=== PATIENT | female | born 1995 | race Caucasian/White ===

== ENCOUNTER 2017-09-08 20:00 | Emergency (ER) | payer OTHER, SELFPAY ==
[2017-09-08 20:04] VITALS: BP 135/83; PULSE 141; PULSE 144; RESP 18; RESP 20; TEMP 37.7; O2SAT 98; BMI 23.9
--- NOTE | 2017-09-08 20:09 | EKG12_ITS ---
Test Reason : PALPITATIONS Blood Pressure : / mmHG Vent. Rate : 108 BPM Atrial Rate : 108 BPM P-R Int : 144 ms QRS Dur : 082 ms QT Int : 346 ms P-R-T Axes : 072 078 053 degrees QTc Int : 463 ms Sinus tachycardia Otherwise normal ECG Confirmed by SHARI NG, LASHELL ([id number]), editor publications ANN LANG ([id number]) on 09/10/2017 1:10:31 PM Referred By: CHERY Confirmed By:LASHELL MCCARTHY MD
--- NOTE | 2017-09-08 20:19 | RAD_ITS ---
STUDY: X-RAY CHEST REASON FOR EXAM: Female, 22 years old. Palpitations. TECHNIQUE: Single AP portable view of the chest. COMPARISON: None. FINDINGS: The lungs are clear and expanded. There is no demonstrated pleural abnormality. Normal size heart. Normal mediastinum and dameon. Normal visualized pulmonary arteries. Normal visualized aortic arch and descending thoracic aorta. Normal visualized thoracic spine. Normal visualized ribs, clavicles, and shoulders. There is no demonstrated abnormality of the visualized soft tissue structures of the upper abdomen. RAD/Chest 1 View (Portable) IMPRESSION: Normal x-ray examination of the chest. Electronically Signed: Ever Alex DO at 20:45 EDT Tel [phone], Service support ,
[2017-09-08 20:47] LABS: Absolute Lymphocyte Count 1.59 X10^3/ul (0.83-4.51); Absolute Neutrophil Count 5.7 X10^3/uL (2.0-7.7); Basophil# 0.02 X10^3/uL; Basophil% 0.3 % (0-1); Eosinophil# 0.08 X10^3/uL; Hemoglobin 15.2 g/dl (12.0-15.0); Lymphocyte # 1.59 X10^3/ul (4.0); Mean Corp Hgb Conc 35.3 g/gl (32-36); Mean Corpuscular Hgb 28.6 pg (27.0-32.0); Mean Corpuscular Volume 80.8 fL (81-99); Mean Platelet Vol. 10.7 fl (6.2-12.0); Monocyte# 0.53 X10^3/uL; Monocyte% 6.7 % (0-10); Neutrophil # 5.72 X10^3/uL (2.7-7.7); Neutrophil % 71.7 % (47-70); POSITIVE COUNT NO; POSITIVE DIFFERENTIAL NO; POSITIVE MORPHOLOGY NO; Platelet Count 284 K/mm3 (150-450); RBC Distribution Width CV 12.9 % (11.6-14.6); Red Blood Count 5.32 M/mm3 (4.2-5.4)
--- NOTE | 2017-09-08 21:07 | ED.DCSUM_ITS ---
- ER Visit Summary Date of Service: 09/08/17 Chief Complaint: Palpitations History of Present Illness: The patient is a 22 F presenting with palpitations ? 2 weeks. This has been intermittent and progressively worsening. Patient has been anxious and under a lot of stress. She has a new boyfriend who she met online. She was afraid to tell her mother. She has had no increase in caffeine. She has anxiety and depression. She denies suicidal ideation. Denies alcohol or drug use. No PE/DVT risk factors. Denies other complaints. Physical Examination: Vitals are stable. Heart rate 144, temperature 99.9 Alert no acute distress. HEENT exam is unremarkable. Neck is supple. No meningismus Lungs are clear and equal bilaterally. Heart is regular and tachycardic Abdomen is soft nontender nondistended. Extremities are unremarkable. Skin is warm and dry. No focal neurologic deficit. Remainder of exam is unremarkable. Emergency Department Course and Treatment: EKG sinus tachycardia rate of 108. Orthostatics are positive. Patient was given IV fluids. Chest x-ray shows no acute process. CBC, chemistries unremarkable other than potassium 3.1. Troponin is negative. HCG negative. TSH 3.46. Patient is feeling improved following fluids. Her repeat heart rate is 91. She is given potassium oral replacement. She is requesting medication for anxiety. She is given a prescription for Vistaril. She will follow-up with her primary care physician and the counseling center. She is advised to return to ED for worsening complaints. Disposition: Discharge home Impression: Palpitations, anxiety This note was generated with [employer] dictation software. It may contain incorrect words, spelling, and punctuation that were not noted in review of the chart prior to signing ED Disposition - Plan for ED Patient: Chief Complaint: Palpitations Instructions: ED Palpitations Prescriptions: hydrOXYzine pamoate capsule [Vistaril] 25 mg PO TID PRN PRN #20 capsule PRN Reason: Anxiety Referrals: [facility] [GROUP OF PHYSICIANS] - Bonnie Lindquist MD [STAFF PHYSICIAN] -
[2017-09-08 21:11] LABS: Anion Gap 13 (5-15); BUN 10 mg/dL (7-18); BUN/Creat Ratio 11.4 RATIO (10-20); Calcium,Total 9.9 mg/dL (8.5-10.1); Chloride 107 mmol/L (98-107); Creatinine, Serum 0.88 mg/dL (0.55-1.02); EST Glomerular Filtration Rate 87 mL/min (>60); Est Glom Filt Rate - Afr Amer 106 mL/min (>60); Estimated Creatinine Clearance 86.61 ml/min; Glucose 101 mg/dL (74-106); Potassium 3.1 mmol/L (3.5-5.1); Sodium Level 141 mmol/L (136-145)
[2017-09-08] MEDS: 0.9% Normal Saline 1,000 ML 999 ML IV ×2 (21:15→22:05)
[2017-09-08 21:16] VITALS: BP 104/81; BP 113/85; BP 123/83; PULSE 102; PULSE 125; PULSE 132
[2017-09-08 21:30] LABS: Thyroid Stim Hormone (TSH) 3.46 uIU/mL (0.358-3.74)
[2017-09-08 21:40] LABS: Pregnancy, Serum, hCG Quali. NEGATIVE Negative (0-9 Nonpreg)
[2017-09-08 22:04] VITALS: BP 124/72; PULSE 91; RESP 18; O2SAT 96
--- NOTE | 2017-09-08 23:46 | ED.DEP ---
ED Disposition - Plan for ED Patient: Chief Complaint: Palpitations Instructions: ED Palpitations Prescriptions: hydrOXYzine pamoate capsule [Vistaril] 25 mg PO TID PRN PRN #20 capsule PRN Reason: Anxiety Referrals: Bonnie Lindquist MD [STAFF PHYSICIAN] - [facility] [GROUP OF PHYSICIANS] -
[2017-09-09 00:02] VITALS: BP 116/84; PULSE 99; RESP 18
== END 2017-09-09 00:03 | disposition home or self-care (01) ==
PROVIDERS: Emergency Provider Emergency Medicine
DX: R00.2 Palpitations (principal); F41.9 Anxiety disorder, unspecified
CPT/HCPCS: 71045; 80048; 84443; 84484; 84703; 85025; 93005; 96360; 99285; J7030; A4216

== ENCOUNTER → 2020-01-09 09:52 | Outpatient (CLI) | payer OTHER, SELFPAY ==
[2020-01-09 12:31] LABS: Absolute Lymphocyte Count 1.48 X10^3/uL (0.83-4.51); Absolute Neutrophil Count 3.8 X10^3/uL (2.0-7.7); Basophil# 0.03 X10^3/uL; Basophil% 0.5 % (0-1); Eosinophil# 0.12 X10^3/uL; Hematocrit 44.5 % (37-47); Hemoglobin 14.4 g/dL (12.0-15.0); Lymphocyte # 1.48 X10^3/ul (4.0); Mean Corp Hgb Conc 32.4 g/dL (32-36); Mean Corpuscular Hgb 27.5 pg (27.0-32.0); Mean Corpuscular Volume 84.9 fL (81-99); Monocyte# 0.48 X10^3/uL; Monocyte% 8.1 % (0-10); NRBC Flagged by Analyzer 0 % (0-5); Neutrophil # 3.78 X10^3/uL (2.7-7.7); Neutrophil % 64.1 % (47-70); Platelet Count 262 K/mm3 (150-450); RBC Distribution Width CV 12.7 % (11.6-14.6); RBC Distribution Width SD 39.5 fl (35.1-43.9); Red Blood Count 5.24 M/mm3 (4.2-5.4); White Blood Count 5.9 K/mm3 (4.4-11.0)
[2020-01-09 12:43] LABS: ALB/GLOB Ratio 1.1 RATIO (0.9-2.4); AST(SGOT) 17 U/L (15-37); Alanine Aminotransfer ALT/SGPT 40 U/L (13-56); Alkaline Phosphatase 60 U/L (45-117); Anion Gap 7 (5-15); BUN 13 mg/dL (7-18); BUN/Creat Ratio 16.3 RATIO (10-20); Calcium,Total 9.4 mg/dL (8.5-10.1); Chloride 106 mmol/L (98-107); Cholesterol 167 mg/dL (200); EST Glomerular Filtration Rate 95 mL/min (>60); Est Glom Filt Rate - Afr Amer 115 mL/min (>60); Globulin 3.7 g/dL (2.2-4.2); Glucose 81 mg/dL (74-106); High Density Lipoprotein 38 mg/dL; Potassium 3.6 mmol/L (3.5-5.1); Protein, Total 7.7 g/dL (6.4-8.2); Sodium Level 139 mmol/L (136-145); Thyroid Stim Hormone (TSH) 3.19 uIU/mL (0.358-3.74); Triglycerides 112 mg/dL; Very Low Density Lipoprotein 22 mg/dL (5-40)
[2020-01-09 12:50] LABS: Hemoglobin A1c 4.9 % (3.8-5.6)
== END ==
PROVIDERS: PCP Family Medicine
DX: F84.0 Autistic disorder (principal); F32.9 Major depressive disorder, single episode, unspecified; F41.0 Panic disorder [episodic paroxysmal anxiety]
CPT/HCPCS: 36415; 80053; 80061; 83036; 84443; 85025

== ENCOUNTER 2020-10-08 13:34 | Emergency (ER) | payer OTHER, SELFPAY ==
[2020-10-08] VITALS (9 sets, daily range): BP systolic 106–120; BP diastolic 65–83; PULSE 69–95; RESP 14–18; TEMP 36.9–37.1; O2SAT 96–100; BMI 26.2
--- NOTE | 2020-10-08 14:35 | EKG12_ITS ---
Test Reason : Blood Pressure : / mmHG Vent. Rate : 089 BPM Atrial Rate : 089 BPM P-R Int : 142 ms QRS Dur : 080 ms QT Int : 378 ms P-R-T Axes : 061 076 047 degrees QTc Int : 459 ms Normal sinus rhythm Normal ECG Confirmed by SHARI NG, LASHELL ([id number]), editor school photograph REGLA GRANADOS ([id number]) on 10/09/2020 1:54:16 PM Referred By: BIJAN Confirmed By:LASHELL MCCARTHY MD
[2020-10-08 14:37] LABS: Amphetamine Urine VISTA NEGATIVE (<1000 ng/mL); Barbiturate Urine VISTA NEGATIVE (< 200 ng/mL); Benzodiazepine Urine VISTA NEGATIVE (< 200 ng/mL); Cocaine Urine VISTA NEGATIVE (< 300 ng/mL); Ecstacy Urine VISTA NEGATIVE (< 500 ng/mL); Methadone Urine VISTA NEGATIVE (< 300 ng/mL); PCP Urine VISTA NEGATIVE (< 25 ng/mL); THC Urine VISTA NEGATIVE (< 50 ng/mL); Vista UDS pH Range 6
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
[2020-10-08 14:58] LABS: Absolute Lymphocyte Count 0.97 X10^3/uL (0.83-4.51); Absolute Neutrophil Count 3.7 X10^3/uL (2.0-7.7); Basophil# 0.02 X10^3/uL; Basophil% 0.4 % (0-1); Eosinophil# 0.08 X10^3/uL; Eosinophils% 1.5 % (0-5); Hematocrit 44.8 % (37-47); Hemoglobin 15.1 g/dL (12.0-15.0); Lymphocyte # 0.97 X10^3/ul (0.83-4.51); Lymphocyte % 18.8 % (19-41); Mean Corp Hgb Conc 33.7 g/dL (32-36); Mean Corpuscular Hgb 27.8 pg (27.0-32.0); Mean Corpuscular Volume 82.4 fL (81-99); Monocyte# 0.36 X10^3/uL; NRBC Flagged by Analyzer 0 % (0-5); Neutrophil # 3.72 X10^3/uL (2.7-7.7); Neutrophil % 71.9 % (47-70); Platelet Count 248 K/mm3 (150-450); RBC Distribution Width CV 12.8 % (11.6-14.6); RBC Distribution Width SD 38.2 fl (35.1-43.9); Red Blood Count 5.44 M/mm3 (4.2-5.4); White Blood Count 5.2 K/mm3 (4.4-11.0)
[2020-10-08 15:11] LABS: Anion Gap 4 (5-15); BUN 9 mg/dL (7-18); BUN/Creat Ratio 13.2 RATIO (10-20); Calcium,Total 9.1 mg/dL (8.5-10.1); Chloride 107 mmol/L (98-107); Creatinine, Serum 0.68 mg/dL (0.55-1.02); EST Glomerular Filtration Rate 113 mL/min (>60); Est Glom Filt Rate - Afr Amer 137 mL/min (>60); Estimated Creatinine Clearance 119.64 ml/min; Glucose 87 mg/dL (74-106); Sodium Level 138 mmol/L (136-145)
[2020-10-08 15:18] LABS: Alcohol, Blood (Medical)-Serum < 3.0 mg/dL
--- NOTE | 2020-10-08 16:14 | EDS_ITS ---
HPI HPI - Psych History of Present Illness Chief Complaint: Suicidal Informant: patient and parent Onset/Context/Timing Onset: Today Context: Sudden Onset Conflict: Family Timing: Continuous Worsened by: Situational factors Associated Symptoms Associated Symptoms - Psych: Positive for Depressed, Decreased Interest, Hopelessness, Suicidal Thoughts and Auditory Hallucinations Specific plan (suicidal thought): Cutting wrists, shooting self with gun, drinking alcohol and drowning self Narrative Narrative: Patient presents with suicidal ideations that became worse today. Mother states that she told the patient that she needed to clean up her room so that her cat would not mess it up. Mother states that patient became upset with this and started having suicidal ideations. Patient states that she feels like she feels hopeless. Patient admits to some auditory hallucinations. Patient states the voices are telling her that she is doing well and doing all the right things. Patient states she has thought of getting in the bathtub and cutting her wrists, getting into her father's gun cabinet and shooting herself, and drinking alcohol and trying to drown herself. PFSH PFS Medical History Anxiety Depression Home Medications citalopram [Celexa] 30 mg PO DAILY 10/08/20 [History Last Taken Unknown] Allergy/AdvReac Type Severity Reaction Status Date / Time latex AdvReac Rash Verified 10/08/20 13:38 no surgical history Social History Smoking Status: Never smoker ROS ROS ED Constitutional Constitutional ED: Denies chills or fever(s) Eyes Eyes: Denies blurry vision or change in vision ENT ENT ED: Denies rhinorrhea or sore throat Cardiovascular Cardiovascular: Reports chest pain; Denies palpitations Respiratory/Chest Respiratory/Chest: Denies cough or dyspnea Gastrointestinal Gastrointestinal: Denies nausea or vomiting Genitourinary Genitourinary ED: Denies dysuria or hematuria Musculoskeletal Musculoskeletal: Reports back pain; Denies neck pain Integumentary Denies abscess or rash Neurologic Neurologic: Denies headache(s) or weakness Psychiatric Psychiatric: Reports anxiety, depression and suicidal thoughts Allergic/Immunologic Allergic/Immunologic ED: Denies mouth swelling or urticaria EXAM Physical Exam Const Vital Signs: 10/08/20 13:35 10/08/20 14:43 10/08/20 15:15 Temperature 98.5 F Temperature Source Temporal Pulse Rate 95 Respiratory Rate 18 16 14 Blood Pressure 120/83 H Blood Pressure Mean 95 Pulse Ox 100 Oxygen Delivery Method Room Air Room Air 10/08/20 16:13 Temperature Temperature Source Pulse Rate Respiratory Rate 16 Blood Pressure Blood Pressure Mean Pulse Ox Oxygen Delivery Method Room Air Positive well nourished and well developed General Appearance ED: well developed HEENT normocephalic and atraumatic Neck supple and no JVD Resp normal respiratory effort and clear to auscultation bilaterally Cardio no murmurs Rate: regular rate Rhythm: regular rhythm GI non-tender and non-distended Auscultation: normoactive bowel sounds Palpation: soft Extremity normal to inspection General Extremety ED: Negative for edema or tenderness General Extremity: Negative for edema Neuro oriented x3, CN's II-XII intact bilaterally and no sensory deficits noted Sensorium / Orientation: alert Motor Exam: strength 5/5 throughout Psych mental status grossly normal Activity / Motor Behavior: avoids eye contact Speech: minimal and soft Mood & Affect: depressed and flat affect Thought Content: suicidality and hallucination(s) Positive for auditory Attention / Concentration: attention grossly intact Skin Rashes: no rashes MDM MDM MDM Narrative Medical decision making narrative: EKG was obtained. On my interpretation, it showed a normal sinus rhythm with a rate of 89. NE interval, QRS interval, and QTc intervals were all normal. [place] was normal. There are no acute ST or T wave changes. CBC was essentially within normal limits. Basic metabolic prof ile was normal. Urine tox screen was negative. Serum alcohol level was negative. COVID-19 rapid antigen was obtained and was negative. Serum hCG was ordered and is negative. Patient is medically cleared for psychiatric evaluation. Ladies' Locker Room Attendant is in to evaluate the patient. wax ball knock out worker and I both feel that the patient would benefit from inpatient psychiatric care. Case management is attempting to try to get the patient placed in a psychiatric facility. Lab Data Attestation: I reviewed the patient's lab results. Labs: Laboratory Results - last 24 hr 10/08/20 10/08/20 10/08/20 14:09 14:43 14:43 WBC 5.2 RBC 5.44 H Hgb 15.1 H Hct 44.8 MCV 82.4 MCH 27.8 MCHC 33.7 RDW Std Deviation 38.2 RDW Coeff of Scott 12.8 Plt Count 248 MPV 10.0 Immature Gran % (Auto) 0.400 Neut % (Auto) 71.9 H Lymph % (Auto) 18.8 L Charlotte % (Auto) 7.0 Eos % (Auto) 1.5 Baso % (Auto) 0.4 Absolute Neuts (auto) 3.7 Absolute Lymphs (auto) 0.97 Nucleated RBC % 0 Sodium 138 Potassium 4.0 Chloride 107 Carbon Dioxide 27.0 Anion Gap 4 L BUN 9 Creatinine 0.68 Estim Creat Clear Calc 119.64 Est GFR (MDRD) Af Amer 137 Est GFR (MDRD) Non-Af 113 BUN/Creatinine Ratio 13.2 Glucose 87 Calcium 9.1 Serum , Qual Urine Opiates Screen NEGATIVE Urine Methadone Screen NEGATIVE Ur Barbiturates Screen NEGATIVE Ur Phencyclidine Scrn NEGATIVE Ur Amphetamines Screen NEGATIVE U Methamphetamin-MDMA NEGATIVE U Benzodiazepines Scrn NEGATIVE Urine Cocaine Screen NEGATIVE U Cannabinoids Screen NEGATIVE Ur Drug Screen Comment Ethyl Alcohol 10/08/20 10/08/20 14:43 14:43 WBC RBC Hgb Hct MCV MCH MCHC RDW Std Deviation RDW Coeff of Scott Plt Count MPV Immature Gran % (Auto) Neut % (Auto) Lymph % (Auto) Charlotte % (Auto) Eos % (Auto) Baso % (Auto) Absolute Neuts (auto) Absolute Lymphs (auto) Nucleated RBC % Sodium Potassium Chloride Carbon Dioxide Anion Gap BUN Creatinine Estim Creat Clear Calc Est GFR (MDRD) Af Amer Est GFR (MDRD) Non-Af BUN/Creatinine Ratio Glucose Calcium Serum , Qual NEGATIVE Urine Opiates Screen Urine Methadone Screen Ur Barbiturates Screen Ur Phencyclidine Scrn Ur Amphetamines Screen U Methamphetamin-MDMA U Benzodiazepines Scrn Urine Cocaine Screen U Cannabinoids Screen Ur Drug Screen Comment Ethyl Alcohol < 3.0 EKG Initial EKG: Attestation: I personally reviewed and interpreted this EKG as follows: Interpretation: Sinus Rhythm (89) and No Acute Injury Pattern Discharge Plan Triage Chief Complaint: Suicidal ED Provider: Christian Murrieta Dx/Rx/DC Orders Clinical Impression: Depression with suicidal ideation Prescriptions: No Action citalopram [Celexa] 20 mg tablet 30 mg PO DAILY RF: 0 Primary Care Provider: Keila Givens Referrals: Keila Givens MD [Primary Care Provider] -
[2020-10-08 16:31] LABS: Internal QC Validated? YES +Cl - CLEAR BKGD; Pregnancy, Serum, hCG Quali. NEGATIVE Negative
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
== END 2020-10-08 20:41 ==
PROVIDERS: Emergency Medicine; Emergency Provider Emergency Medicine; PCP Family Medicine
DX: F32.9 Major depressive disorder, single episode, unspecified (principal); R45.851 Suicidal ideations; F41.9 Anxiety disorder, unspecified; Z79.899 Other long term (current) drug therapy
CPT/HCPCS: 80048; 80307; 82077; 84703; 85025; 87426; 93005; 99285; J7040

== ENCOUNTER → 2020-10-29 | Outpatient (CLI) | payer OTHER, SELFPAY | END | disposition home or self-care (01) | PROVIDERS: PCP Family Medicine; Visit Provider Family Medicine | DX: Z20.822 Contact with and (suspected) exposure to COVID-19 (principal) | CPT/HCPCS: 87635; U0005; U0003 ==

== ENCOUNTER → 2020-11-05 10:13 | Outpatient (CLI) | payer OTHER, SELFPAY ==
[2020-11-05 11:03] LABS: Absolute Lymphocyte Count 1.12 X10^3/uL (0.83-4.51); Basophil# 0.03 X10^3/uL; Basophil% 0.3 % (0-1); Eosinophil# 0.13 X10^3/uL; Eosinophils% 1.5 % (0-5); Hematocrit 40.3 % (37-47); Lymphocyte # 1.12 X10^3/ul (0.83-4.51); Lymphocyte % 12.8 % (19-41); Mean Corp Hgb Conc 32.3 g/dL (32-36); Mean Corpuscular Volume 86.7 fL (81-99); Mean Platelet Vol. 10.5 fl (6.2-12.0); Monocyte# 0.46 X10^3/uL; Monocyte% 5.3 % (0-10); NRBC Flagged by Analyzer 0 % (0-5); Neutrophil # 6.99 X10^3/uL (2.7-7.7); Neutrophil % 79.8 % (47-70); Platelet Count 291 K/mm3 (150-450); RBC Distribution Width CV 13.3 % (11.6-14.6); RBC Distribution Width SD 42.1 fl (35.1-43.9); Red Blood Count 4.65 M/mm3 (4.2-5.4); White Blood Count 8.8 K/mm3 (4.4-11.0)
[2020-11-05 11:23] LABS: Hemoglobin A1c 4.8 % (3.8-5.6)
[2020-11-05 11:55] LABS: ALB/GLOB Ratio 1.1 RATIO (0.9-2.4); AST(SGOT) 15 U/L (15-37); Alanine Aminotransfer ALT/SGPT 24 U/L (13-56); Albumin, Serum 3.8 g/dL (3.2-5.0); Alkaline Phosphatase 46 U/L (45-117); Anion Gap 6 (5-15); BUN 7 mg/dL (7-18); BUN/Creat Ratio 9.3 RATIO (10-20); Calcium,Total 9.2 mg/dL (8.5-10.1); Chloride 106 mmol/L (98-107); Cholesterol 146 mg/dL (200); Creatinine, Serum 0.75 mg/dL (0.55-1.02); EST Glomerular Filtration Rate 102 mL/min (>60); Est Glom Filt Rate - Afr Amer 123 mL/min (>60); Globulin 3.6 g/dL (2.2-4.2); Glucose 96 mg/dL (74-106); High Density Lipoprotein 45 mg/dL; Potassium 3.6 mmol/L (3.5-5.1); Protein, Total 7.4 g/dL (6.4-8.2); Sodium Level 138 mmol/L (136-145); Thyroid Stim Hormone (TSH) 3.98 uIU/mL (0.358-3.74); Triglycerides 88 mg/dL; Very Low Density Lipoprotein 18 mg/dL (5-40)
== END ==
PROVIDERS: PCP Family Medicine
DX: F32.9 Major depressive disorder, single episode, unspecified (principal); F84.0 Autistic disorder; Z79.899 Other long term (current) drug therapy
CPT/HCPCS: 36415; 80053; 80061; 80178; 83036; 84443; 85025

== ENCOUNTER 2022-04-07 21:57 | Emergency (ER) | payer MEDICAID, SELFPAY ==
[2022-04-07 21:58] VITALS: BP 120/65; PULSE 120; RESP 15; TEMP 36.6; O2SAT 98; BMI 30.5
--- NOTE | 2022-04-07 22:23 | EKG12_ITS ---
Test Reason : DYSRHYTHMIA Blood Pressure : / mmHG Vent. Rate : 096 BPM Atrial Rate : 096 BPM P-R Int : 146 ms QRS Dur : 084 ms QT Int : 390 ms P-R-T Axes : 062 062 038 degrees QTc Int : 492 ms Normal sinus rhythm Prolonged QT Abnormal ECG Confirmed by KATIE NG, CARLOS ([id number]), desk editor REGLA GRANADOS ([id number]) on 04/08/2022 1:53:09 PM Referred By: PAULA Confirmed By:CARLOS WILSON MD
[2022-04-07] MEDS: 0.9% Normal Saline 1,000 ML 999 ML IV (22:29)
[2022-04-07 22:45] LABS: Absolute Lymphocyte Count 2.31 X10^3/uL (0.83-4.51); Absolute Neutrophil Count 5.7 X10^3/uL (2.0-7.7); Basophil# 0.04 X10^3/uL; Basophil% 0.5 % (0-1); Eosinophil# 0.11 X10^3/uL; Eosinophils% 1.3 % (0-5); Hematocrit 42.5 % (37-47); Lymphocyte # 2.31 X10^3/ul (0.83-4.51); Lymphocyte % 26.4 % (19-41); Mean Corp Hgb Conc 32.9 g/dL (32-36); Mean Corpuscular Hgb 26.8 pg (27.0-32.0); Mean Corpuscular Volume 81.3 fL (81-99); Mean Platelet Vol. 10.8 fl (6.2-12.0); Monocyte# 0.57 X10^3/uL; Monocyte% 6.5 % (0-10); NRBC Flagged by Analyzer 0 % (0-5); Neutrophil # 5.69 X10^3/uL (2.7-7.7); Platelet Count 315 K/mm3 (150-450); RBC Distribution Width CV 13.2 % (11.6-14.6); RBC Distribution Width SD 38.5 fl (35.1-43.9); Red Blood Count 5.23 M/mm3 (4.2-5.4); White Blood Count 8.8 K/mm3 (4.4-11.0)
[2022-04-07 23:02] VITALS: BP 108/79; PULSE 85; RESP 18; O2SAT 97
[2022-04-07 23:21] LABS: Anion Gap 13 (5-15); BUN 13 mg/dL (7-18); BUN/Creat Ratio 14.1 RATIO (10-20); Calcium,Total 9.6 mg/dL (8.5-10.1); Chloride 108 mmol/L (98-107); Creatinine, Serum 0.92 mg/dL (0.55-1.02); EST Glomerular Filtration Rate 79 mL/min (>60); Est Glom Filt Rate - Afr Amer 95 mL/min (>60); Estimated Creatinine Clearance 98.58 ml/min; Glucose 104 mg/dL (74-106); Potassium 3.1 mmol/L (3.5-5.1); Sodium Level 140 mmol/L (136-145)
[2022-04-07 23:23] LABS: D-Dimer Quantitative (DVT/PE) < 0.27 FEU/ug/m (0.27-0.49)
--- NOTE | 2022-04-07 23:53 | EDS_ITS ---
HPI History of Present Illness Chief Complaint: Palpitations Narrative Narrative: Patient is a 26-year-old female with history of anxiety. She states this evening she was lying in bed sleeping when she awoke with sensation that her heart was racing. She states she took her pulse and was elevated approximately 165 bpm. The patient states that this occurred roughly 30 minutes prior to arrival. She states that there is no family history of abnormal heart rhythm. She denies any excessive stimulant use or illicit drug use. She denies any recent travel surgery or history of DVT/PE. She hates however as she did not think this was related to a panic attack she was concern for an abnormal heart rhythm and therefore comes in for evaluation [facility] Medical History Anxiety Depression Home Medications citalopram 20 mg tablet (Celexa) 30 mg PO DAILY 10/08/20 [History Last Taken Unknown] hydroxyzine pamoate 25 mg capsule 25 mg PO TID PRN Anxiety 04/07/22 [History Last Taken Unknown] Allergy/AdvReac Type Severity Reaction Status Date / Time latex AdvReac Rash Verified 10/08/20 13:38 Social History Smoking Status: Never smoker ROS [facility] ED Constitutional Constitutional ED: Denies chills or fever(s) ENT ENT ED: Denies sore throat Cardiovascular Cardiovascular: Reports palpitations and racing heartbeat; Denies chest pain Respiratory/Chest Respiratory/Chest: Denies cough or dyspnea Gastrointestinal Gastrointestinal: Denies abdominal pain, diarrhea, nausea or vomiting Genitourinary Genitourinary ED: Denies dysuria Musculoskeletal Musculoskeletal: Denies myalgias Integumentary Denies rash Neurologic Neurologic: Denies headache(s) Psychiatric Psychiatric: Denies anxiety Hematologic/Lymphatic Hematologic/Lymphatic: Denies easy bleeding or easy bruising EXAM Physical Exam Const Vital Signs: 04/07/22 21:58 04/07/22 22:30 04/07/22 23:02 Temperature 97.9 F Temperature Source Temporal Pulse Rate 120 H 85 Respiratory Rate 15 18 Respiratory Effort Normal Non-Labored Blood Pressure 120/65 108/79 Blood Pressure Mean 83 88 Pulse Ox 98 97 Oxygen Delivery Method Room Air Room Air 04/08/22 00:02 Temperature Temperature Source Pulse Rate 71 Respiratory Rate 16 Respiratory Effort Blood Pressure 114/79 Blood Pressure Mean Pulse Ox 97 Oxygen Delivery Method Positive well nourished and well developed General Appearance ED: well developed HEENT Reports moist mucous membranes Eyes PERRL and EOMs intact bilaterally General Eye ED: Negative for pale conjunctiva Neck supple Resp normal respiratory effort and clear to auscultation bilaterally Cardio regular rhythm Rate: tachycardic and other Other Details: Tachycardic rate with regular rhythm Radial pulses are plus 2 out of 4 bilaterally are equal and symmetric GI normal to inspection, nondistended, normoactive bowel sounds, non-tender, non- distended and no masses Auscultation: normoactive bowel sounds Palpation: soft Extremity normal to inspection Extremity Narrative: No asymmetric edema no pitting edema negative Homans' sign bilaterally Neuro oriented x3 and CN's II-XII intact bilaterally Sensorium / Orientation: alert Psych mental status grossly normal Skin no rashes or lesions noted MDM MDM MDM Narrative Medical decision making narrative: Patient presented to the ER in sinus tachycardia but otherwise with stable vitals. She reported a heart rate at home approximate 165 which would be possible in sinus tachycardia but there is concern she was in an abnormal rhythm such as supraventricular tachycardia. She has no recent travel surgery or history of DVT/PE and spontaneous resolution of heart rate but with that elevati on there is also concern for possible PE as a cause of her symptoms. Secondary to this basic blood work was obtained which revealed no signs of anemia clinically significant electrolyte derangement or elevation to the D-dimer. After IV hydration her heart rate improved to 71 and remained in sinus rhythm. Therefore at this time with resolution of symptoms no true cardiac dysrhythmia noted on work-up and stable laboratory studies there is no need for further investigation in the ER and patient is otherwise safe for discharge Lab Data Attestation: I reviewed the patient's lab results. Labs: Laboratory Results - last 24 hr 04/07/22 04/07/22 04/07/22 22:30 22:30 22:30 WBC 8.8 RBC 5.23 Hgb 14.0 Hct 42.5 MCV 81.3 MCH 26.8 L MCHC 32.9 RDW Std Deviation 38.5 RDW Coeff of Scott 13.2 Plt Count 315 MPV 10.8 Immature Gran % (Auto) 0.300 Neut % (Auto) 65.0 Lymph % (Auto) 26.4 Love % (Auto) 6.5 Eos % (Auto) 1.3 Baso % (Auto) 0.5 Absolute Neuts (auto) 5.7 Absolute Lymphs (auto) 2.31 Nucleated RBC % 0 D-Dimer Quant (PE/DVT) < 0.27 L Sodium 140 Potassium 3.1 L Chloride 108 H Carbon Dioxide 19.0 L Anion Gap 13 BUN 13 Creatinine 0.92 Estim Creat Clear Calc 98.58 Est GFR (MDRD) Af Amer 95 Est GFR (MDRD) Non-Af 79 BUN/Creatinine Ratio 14.1 Glucose 104 Calcium 9.6 Magnesium 2.0 TSH 4.00 H Discharge Plan Triage Chief Complaint: Palpitations ED Provider: Jose Rodriguez Dx/Rx/DC Orders Clinical Impression: Palpitations, Hypokalemia Instructions: ED Palpitations Prescriptions: No Action citalopram [Celexa] 20 mg tablet 30 mg PO DAILY Label Comments: take 1 tablet by mouth once daily IN THE MORNING hydroxyzine pamoate 25 mg capsule 25 mg PO TID PRN (Reason: Anxiety) Label Comments: take 1 capsule by mouth three times a day if needed Primary Care Provider: Keila Givens Referrals: Keila Givens MD [Primary Care Provider] - Activity Restrictions/Additional Instructions: Your work-up today did not reveal any abnormal heart rhythm. However with the report of heart rate going up to 160 at home there is concern for this so talk to your family doctor about a Holter monitor to further monitor your heart rate and rhythm. Your potassium was slightly low today so therefore eat potassium ri ch foods to bring this up and keep yourself well-hydrated. Please return to the ER should you have any further concerns Disposition Disposition: Home, Self Care Discharge Date/Time: 04/08/22 00:08
[2022-04-08 00:02] VITALS: BP 114/79; PULSE 71; RESP 16; O2SAT 97
== END 2022-04-08 00:08 | disposition home or self-care (01) ==
PROVIDERS: Emergency Provider Emergency Medicine; PCP Family Medicine; Visit Provider Emergency Medicine
DX: R00.2 Palpitations (principal); E87.6 Hypokalemia; F41.9 Anxiety disorder, unspecified
CPT/HCPCS: 80048; 83735; 84443; 85025; 85379; 93005; 96360; 96361; 99283; J7030; A4216

== ENCOUNTER → 2022-04-14 | Outpatient (CLI) | payer MEDICAID, SELFPAY ==
[2022-04-14 15:45] LABS: Anion Gap 6 (5-15); BUN 9 mg/dL (7-18); BUN/Creat Ratio 11.3 RATIO (10-20); Calcium,Total 9.4 mg/dL (8.5-10.1); Chloride 107 mmol/L (98-107); EST Glomerular Filtration Rate 94 mL/min (>60); Est Glom Filt Rate - Afr Amer 113 mL/min (>60); Free T3 2.5 pg/mL (2.18-3.98); Glucose 92 mg/dL (74-106); Sodium Level 139 mmol/L (136-145); T4 Free Direct 1.12 ng/dL (0.76-1.46)
== END | disposition home or self-care (01) ==
PROVIDERS: PCP Family Medicine; Visit Provider Family Medicine
DX: E03.9 Hypothyroidism, unspecified (principal); E87.6 Hypokalemia; E55.9 Vitamin D deficiency, unspecified
CPT/HCPCS: 36415; 80048; 82306; 84439; 84443; 84481

== ENCOUNTER → 2022-04-20 | Outpatient (CLI) | payer MEDICAID, SELFPAY | END | disposition home or self-care (01) | LOC: PSN 08:23 | PROVIDERS: PCP Family Medicine; Referring Provider Family Medicine; Visit Provider Family Medicine | DX: R00.2 Palpitations (principal) | CPT/HCPCS: 93225; 93226 ==

== ENCOUNTER 2022-08-02 21:23 | Emergency (ER) | payer MEDICAID, SELFPAY ==
[2022-08-02 21:24] VITALS: BP 102/74; PULSE 87; RESP 15; TEMP 37; O2SAT 99; BMI 32.5
--- NOTE | 2022-08-02 22:30 | EX.ED.DYSGE1 ---
HPI History of Present Illness Chief Complaint: Other, Pain/Inj Informant: patient Onset/Context/Timing Onset: Days (2) Context: Gradual Onset Timing: Continuous Quality: Aching Location: Left lower molars Worsened by: Eating, pressure Relieved by: Nothing Narrative Narrative: Patient presents with left lower dental pain that has been getting worse over the past couple days. Patient states it is gradually gotten worse. Patient describes pain as aching. Patient states the pain is over the left lower molars. Patient states it is worse with eating and with pressure. Patient states nothing helps with the pain. Patient states she also has been feeling some lightheadedness. Patient also admits to some throbbing pain in the lateral aspect of her left chest. Patient denies any shortness of breath or cough. Patient denies any fevers or chills. PFSH [facility] Medical History (Updated 08/02/22 @ 22:[address] Christian Murrieta DO) Anxiety Depression Home Medications citalopram 20 mg tablet (Celexa) 30 mg PO DAILY 10/08/20 [History Last Taken Unknown] hydroxyzine pamoate 25 mg capsule 25 mg PO TID PRN Anxiety 04/07/22 [History Last Taken Unknown] penicillin V potassium 500 mg tablet 500 mg PO 4X/DAY #40 tabs 08/02/22 [Rx Last Taken Unknown] Allergy/AdvReac Type Severity Reaction Status Date / Time latex AdvReac Rash Verified 08/02/22 21:27 Surgical History (Updated 08/02/22 @ 22:[address] Christian Murrieta DO) Hx of local excision of skin lesion Social History Smoking Status: Never smoker ROS ROS ED Constitutional Constitutional ED: Denies chills or fever(s) Eyes Eyes: Denies blurry vision or change in vision ENT ENT ED: Denies rhinorrhea or sore throat Cardiovascular Cardiovascular: Reports chest pain; Denies palpitations Respiratory/Chest Respiratory/Chest: Denies cough or dyspnea Gastrointestinal Gastrointestinal: Denies nausea or vomiting Genitourinary Genitourinary ED: Denies dysuria or hematuria Musculoskeletal Musculoskeletal: Denies back pain or neck pain Integumentary Denies abscess or rash Neurologic Neurologic: Denies headache(s) or weakness Allergic/Immunologic Allergic/Immunologic ED: Denies mouth swelling or urticaria EXAM Physical Exam Const Vital Signs: 08/02/22 21:24 Temperature 98.6 F Temperature Source Temporal Pulse Rate 87 Respiratory Rate 15 Blood Pressure 102/74 Blood Pressure Mean 83 Pulse Ox 99 Oxygen Delivery Method Room Air Positive well nourished and well developed General Appearance ED: well developed and NAD HEENT Reports moist mucous membranes HEENT Narrative: There are dental caries of the left lower molars. There is edema around these teeth. There is no fluctuance. There is no discharge or drainage. There is no sublingual edema or erythema. Neck is supple. Trachea is midline. There is no JVD or lymphadenopathy noted. There is no evidence of Levi's angina. Oropharynx is clear. Airway is patent. Neck supple and no JVD Chest Wall Chest Narrative: There is mild tenderness over the left lateral ribs over the fifth, sixth, and seventh rib area. There is no edema or ecchymosis. There is no bony crepitance or step-off noted. Resp normal respiratory effort and clear to auscultation bilaterally Cardio regular rate, regular rhythm and no murmurs GI normal to inspection, nondistended, normoactive bowel sounds and non-tender Palpation: soft Extremity normal to inspection General Extremety ED: Negative for edema or tenderness General Extremity: Negative for edema Neuro oriented x3, CN's II-XII intact bilaterally and no sensory deficits noted Sensorium / Orientation: alert Motor Exam: strength 5/5 throughout Psych mental status grossly normal Skin no rashes or lesions noted MDM MDM MDM Narrative Medical decision making narrative: Patient was advised of these dental caries are likely infected and that is what is causing her pain. Patient was given a dose of Pen-Vee K here. Patient was given a prescription for Pen-Vee K. Patient was instructed to take Tylenol or ibuprofen as needed for pain. Patient was also advised that her her left lateral chest pain is most likely musculoskeletal. Patient was advised that Tylenol and Motrin will also help with this. Patient was instructed to follow-up with her primary care physician in 5 to 7 days. Patient was also given a dental referral list. Patient was instructed return if worse in any way. Patient understood and was agreeable with the plan. All questions were answered. Discharge Plan Triage Chief Complaint: Other, Pain/Inj ED Provider: Christian Murrieta Dx/Rx/DC Orders Clinical Impression: Infected dental caries, Musculoskeletal chest pain Instructions: ED Dental Cavity Prescriptions: New penicillin V potassium 500 mg tablet 500 mg PO 4X/DAY Qty: 40 0RF No Action citalopram [Celexa] 20 mg tablet 30 mg PO DAILY Label Comments: take 1 tablet by mouth once daily IN THE MORNING hydroxyzine pamoate 25 mg capsule 25 mg PO TID PRN (Reason: Anxiety) Label Comments: take 1 capsule by mouth three times a day if needed Primary Care Provider: Keila Givens Referrals: Keila Givens MD [Primary Care Provider] - 5-7 Days Disposition Disposition: Home, Self Care
[2022-08-02 22:38] VITALS: O2SAT 97
[2022-08-02] MEDS: Penicillin Vk 250 MG Tablet 500 MG PO (22:44)
== END 2022-08-02 23:18 | disposition home or self-care (01) ==
LOC: ED 22:38
PROVIDERS: Emergency Provider Emergency Medicine; PCP Family Medicine; Visit Provider Emergency Medicine
DX: K02.9 Dental caries, unspecified (principal); R07.89 Other chest pain
CPT/HCPCS: 99283

== ENCOUNTER → 2022-10-22 | Outpatient (CLI) | payer MEDICAID, SELFPAY ==
--- NOTE | 2022-10-22 12:49 | ECHOD_ITS ---
Reason For Study: Palpitations Procedure This was a 2D Doppler, Color Flow transthoracic echocardiogram. Exam performed in department. Left Ventricle Normal LV size. Left ventricular systolic function is normal. The estimated ejection fraction is 60 %. No regional wall motion abnormalities noted. Right Ventricle Normal RV size. Normal systolic function. Atria Normal left atrium. Normal right atrium. Mitral Valve Normal mitral valve. Tricuspid Valve Normal tricuspid valve. Mild tricuspid valve insufficiency. Pulmonary artery systolic pressure is 24 mmHg. Aortic Valve Trisinus/trileaflet aortic valve. Pulmonic Valve Normal pulmonic valve. Great Vessels Normal aortic root. The pulmonary artery is normal size. Normal inferior vena cava. Pericardium/Pleural No pericardial effusion. MMode/2D Measurements & Calculations LVIDd: 4.2 cm IVSd: 0.83 cm Ao root diam: 2.5 cm LVIDs: 2.8 cm LVPWd: 0.75 cm LA dimension: 3.2 cm RVDd: 3.0 cm FS: 31.9 % LAV(MOD-bp): 32.1 ml LA A4 area: 13.1 cm2 RA A4 area: 12.6 cm2 LAV(MOD-bp) Indexed: 19.4 ml/m2 LAV(MOD-sp2): 32.0 ml LAV(MOD-sp4): 27.5 ml TAPSE: 1.8 cm Time Measurements MV dec time: 0.15 sec Doppler Measurements & Calculations MV E max andrea: 100.3 cm/sec Lat Peak E' Andrea: 21.0 cm/sec Med Peak E' Andrea: 18.1 cm/sec MV A max andrea: 56.7 cm/sec E/E' lat: 4.8 E/E' med: 5.6 MV E/A: 1.8 MV V2 max: 114.3 cm/sec MV P1/2t max andrea: 113.8 cm/sec Ao V2 max: 109.1 cm/sec MV max P.2 mmHg MV P1/2t: 51.0 msec Ao max P.8 mmHg MV V2 mean: 49.3 cm/sec Ao V2 mean: 78.2 cm/sec MV mean P.3 mmHg MV dec slope: 653.2 cm/sec2 Ao mean P.8 mmHg MV V2 VTI: 25.9 cm MVA(P1/2t): 4.3 cm2 Ao V2 VTI: 23.7 cm AV (velocity ratio): 0.83 LV V1 max: 95.1 cm/sec PA V2 max: 77.7 cm/sec TR max andrea: 227.2 cm/sec LV V1 max P.6 mmHg PA V2 mean: 56.1 cm/sec TR max P.7 mmHg LV V1 mean P.1 mmHg LV V1 mean: 67.0 cm/sec LV V1 VTI: 19.6 cm ECHO/Echo Complete Interpretation Summary Normal LV size. Left ventricular systolic function is normal. Mild tricuspid valve insufficiency. The estimated ejection fraction is 60 %. No regional wall motion abnormalities noted. Ordering Physician: Justin Chavira Referring Physician: Keila Givens Performed By: Ashwin Eubanks RCS
== END | disposition home or self-care (01) ==
LOC: CVS 12:47
PROVIDERS: PCP Family Medicine; Referring Provider Internal Medicine Cardiovascular Disease; Visit Provider Internal Medicine Cardiovascular Disease
DX: R00.2 Palpitations (principal)
CPT/HCPCS: 93306